=== PATIENT | female | born 1995 | race Caucasian/White ===

== ENCOUNTER 2023-07-30 11:41 | Emergency (ER) | payer OTHER, SELFPAY ==
[2023-07-30 11:50] VITALS: BP 132/83; PULSE 70; RESP 16; TEMP 36.6; O2SAT 99
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
[2023-07-30 15:44] VITALS: BP 130/72; PULSE 70; RESP 16; O2SAT 99
== END 2023-07-30 15:45 | disposition home or self-care (01) ==
PROVIDERS: Emergency Provider Student in an Organized Health Care Education/Training Program; PCP Family Medicine
DX: S16.1XXA Strain of muscle, fascia and tendon at neck level, initial encounter (principal); S06.0X0A Concussion without loss of consciousness, initial encounter; V43.53XA Car driver injured in collision with pick-up truck in traffic accident, initial encounter
CPT/HCPCS: 99282

== ENCOUNTER 2024-10-08 11:58 | Outpatient (CLI) | payer OTHER, SELFPAY ==
--- NOTE | ~2024-10-08 | XR_ITS ---
Right foot Technique: AP and lateral views were obtained. Clinical History: Pain Findings: No acute fracture or dislocation is seen. Osseous alignment is anatomic. Joint spaces are p reserved without erosive or degenerative change. Soft tissues are unremarkable. Impression: Unremarkable right foot radiographs. Reviewed, dictated and finalized at [facility]. Impression: Unremarkable right foot radiographs.
== END 2024-10-08 11:59 | disposition home or self-care (01) ==
LOC: GOSHIMG 11:59
PROVIDERS: PCP Family Medicine; Visit Provider Family Medicine
DX: M79.671 Pain in right foot (principal)
CPT/HCPCS: 73620

== ENCOUNTER 2024-10-27 09:20 | Outpatient (RCR) | payer OTHER, SELFPAY ==
[2024-10-27 09:17] VITALS: BMI 38.4
[2024-10-27 09:30] VITALS: BMI 38.4
== END 2025-01-18 13:56 | disposition home or self-care (01) ==
LOC: ANHDMC 09:20
PROVIDERS: PCP Family Medicine; Visit Provider Student in an Organized Health Care Education/Training Program
DX: E66.812 Obesity, class 2 (principal); E66.09 Other obesity due to excess calories; Z68.35 Body mass index [BMI] 35.0-35.9, adult; Z71.3 Dietary counseling and surveillance
CPT/HCPCS: 97802